=== PATIENT | male | born 1950 | race Caucasian/White ===

== ENCOUNTER → 2017-03-05 | Outpatient (CLI) | payer MEDICARE, OTHER ==
[~2017-03-05] MED LIST: AMITRIPTYLINE H25 MG PO; CELEBREX200 MG PO; COQ-10100 MG PO; COUMADIN2.5 MG PO; COUMADIN5 MG PO; DIGOXIN125 MCG PO; DOXAZOSIN MESYLA4 MG PO; ELAVIL25 MG PO; FISH OIL; FISH OIL + D31 EACH PO; FISH OIL 1,0001 EA11 PO; FUROSEMIDE20 MG PO; FUROSEMIDE40 MG PO; GLIPIZIDE5 MG PO; GLUCOPHAGE1000 MG PO; HYDROCODON-ACE1 EAC7 PO; LACTINEX PACKE1 EACH PO; LEVAQUIN750 MG PO; LIPITOR80 MG PO; LISINOPRIL2.5 MG PO; LISINOPRIL5 MG PO; LOPRESSOR50 MG PO; METFORMIN HCL1000 MG PO; METOPROLOL TART50 MG PO; OMEPRAZOLE20 MG PO; PREDNISONE10 MG PO; TIZANIDINE HCL2 MG PO
== END | disposition home or self-care (01) ==
LOC: CDC 10:25
DX: Z01.810 Encounter for preprocedural cardiovascular examination (principal); C76.0 Malignant neoplasm of head, face and neck; I48.91 Unspecified atrial fibrillation
CPT/HCPCS: 93000

== ENCOUNTER → 2017-03-10 | Outpatient (CLI) | payer OTHER ==
[~2017-03-10] VITALS: Ht 188 cm; Wt 150.5 kg
[~2017-03-10] MED LIST changes: +ATIVAN0.5 MG PO; +COMPAZINE10 MG PO; +LOVENOX150 MG/1 M SC; +ZOFRAN8 MG PO
[2017-03-10 12:01] LABS: POINT-OF-CARE METER ID UU14107333
[2017-03-10 12:13] LABS: INTER. NORMALIZED RATIO 1.3; PTT 30.6 SEC (25-37)
[2017-03-10 13:29] LABS: POINT-OF-CARE METER ID UU13113819
== END | disposition home or self-care (01) ==
LOC: AMB 10:48
PROVIDERS: Surgery
PROC: 0DH63UZ Insertion of Feeding Device into Stomach, Percutaneous Approach (ICD-10-PCS; principal; 2017-03-10)
DX: C10.9 Malignant neoplasm of oropharynx, unspecified (principal); I48.91 Unspecified atrial fibrillation; Z79.01 Long term (current) use of anticoagulants; H81.10 Benign paroxysmal vertigo, unspecified ear; M50.30 Other cervical disc degeneration, unspecified cervical region; F41.8 Other specified anxiety disorders; E78.5 Hyperlipidemia, unspecified; I10 Essential (primary) hypertension; E11.9 Type 2 diabetes mellitus without complications; Z79.899 Other long term (current) drug therapy; Z88.8 Allergy status to other drugs, medicaments and biological substances
CPT/HCPCS: 43760; 82948; 85610; 85730; S0074

== ENCOUNTER 2017-03-11 20:43 | Observation (INO) | payer OTHER ==
[~2017-03-11] VITALS: Ht 190.5 cm; Wt 142.4 kg
[~2017-03-11 20:43] MED LIST changes: -ATIVAN0.5 MG PO; -COMPAZINE10 MG PO; -LOVENOX150 MG/1 M SC; -ZOFRAN8 MG PO
[2017-03-11 21:12] LABS: EOSINOPHIL (%) 0.3 % (0-5); HEMATOCRIT 38.9 % (38.0-50.0); IMMATURE GRANULOCYTE (%) 0.5 % (0.0-0.7); IMMATURE GRANULOCYTE COUNT 0.1 K/uL; INSTRUMENT ABS NEUTROPHIL CT 10.2 K/uL; LYMPHOCYTE COUNT 1.4 K/uL (1.0-2.8); MCH 30.5 PG (29.0-34.0); MCHC 33.9 G/DL (30.0-36.0); MCV 89.8 FL (86-99); MEAN PLAT.VOLUME 10.8 uM^3 (9.0-12.4); MONOCYTE (%) 10.6 % (3-12); MONOCYTE COUNT 1.4 K/uL (0-0.8); NEUTROPHIL (%) 77.8 % (45-76); NEUTROPHIL COUNT 10.2 K/uL (1.8-6.4); PLATELET COUNT 166 K/uL (156-360); RBC DIS.WIDTH-CV 13.2 % (11.8-14.6); RBC DIS.WIDTH-SD 43.6 % (39-53); RED BLOOD COUNT 4.33 M/uL (4.00-5.50); WHITE BLOOD COUNT 13.1 K/uL (4.1-10.2)
[2017-03-11 21:20] LABS: CHLORIDE 100 mEq/L (99-109); POTASSIUM 3.9 mEq/L (3.7-5.4); SODIUM 138 mEq/L (136-147)
[2017-03-11 21:21] LABS: GLUCOSE 214 mg/dL (70-99)
[2017-03-11 21:23] LABS: ANION GAP 11 MEQ/L (2-14)
[2017-03-11 21:25] LABS: GFR ESTIMATE (CALCULATED) > 59 mL/min/ (58.99-99999)
[2017-03-11 21:26] LABS: UREA NITROGEN (BUN) 12 mg/dL (9-23)
[2017-03-11 21:32] LABS: TROP-I INTERPRETATION NEGATIVE; TROPONIN-I < 0.01 ng/mL (0.0-0.30)
[2017-03-11 21:37] LABS: INTER. NORMALIZED RATIO 1.3; PROTHROMBIN TIME 14.6 SEC (10.2-12.9)
[2017-03-12] MEDS ORDERED: ATIVAN0.5 MG PO (00:40)
[2017-03-12] MEDS ORDERED: ZOFRAN8 MG PO (00:41)
[2017-03-12] MEDS ORDERED: COMPAZINE10 MG PO (00:41)
[2017-03-12 02:20] LABS: MAGNESIUM 1.6 mg/dL (1.3-2.7)
[2017-03-12 02:30] VITALS: BP 120/56
[2017-03-12 03:57] LABS: HEMATOCRIT 35.4 % (38.0-50.0); MCH 30.6 PG (29.0-34.0); MCHC 34.2 G/DL (30.0-36.0); MCV 89.4 FL (86-99); MEAN PLAT.VOLUME 11.3 uM^3 (9.0-12.4); PLATELET COUNT 140 K/uL (156-360); RBC DIS.WIDTH-CV 13.3 % (11.8-14.6); RBC DIS.WIDTH-SD 43.8 % (39-53); RED BLOOD COUNT 3.96 M/uL (4.00-5.50); WHITE BLOOD COUNT 11.9 K/uL (4.1-10.2)
[2017-03-12 08:03] LABS: ANION GAP 11 MEQ/L (2-14); CHLORIDE 102 MEQ/L (99-109); GFR ESTIMATE (CALCULATED) > 59 mL/min/ (58.99-99999); GLUCOSE 259 mg/dL (70-99); POTASSIUM 3.6 MEQ/L (3.7-5.4); SAMPLE HEMOLYSIS CHECK 0; SAMPLE ICTERIC CHECK 0; SAMPLE LIPEMIA CHECK 0; SODIUM 138 MEQ/L (136-147); UREA NITROGEN (BUN) 11 mg/dL (9-23)
[2017-03-12 08:42] VITALS: BP 126/72
[2017-03-12 12:34] LABS: TROP-I INTERPRETATION NEGATIVE; TROPONIN-I < 0.01 ng/mL (0.0-0.30)
[2017-03-12 12:42] VITALS: BP 142/89
[2017-03-12 13:16] LABS: Estimated Average Glucose 246 mg/dL (70-123); HEMOGLOBIN A1c (GLYCOHEMOGLOB) 10.2 % HGB (Below 5.7)
[2017-03-12 16:20] VITALS: BP 131/78
[2017-03-12 18:30] LABS: POINT-OF-CARE METER ID UU14314088
[2017-03-12 20:56] VITALS: BP 119/58
[2017-03-12 21:09] LABS: POINT-OF-CARE METER ID UU13113781
[2017-03-12 23:27] VITALS: BP 131/64
[2017-03-13 03:40] VITALS: BP 134/60
[2017-03-13 06:14] LABS: HEMATOCRIT 35.3 % (38.0-50.0); MCH 30.7 PG (29.0-34.0); MCHC 33.7 G/DL (30.0-36.0); MEAN PLAT.VOLUME 12.3 uM^3 (9.0-12.4); PLATELET COUNT 147 K/uL (156-360); RBC DIS.WIDTH-CV 13.2 % (11.8-14.6); RBC DIS.WIDTH-SD 44.1 % (39-53); RED BLOOD COUNT 3.88 M/uL (4.00-5.50); WHITE BLOOD COUNT 10.7 K/uL (4.1-10.2)
[2017-03-13 07:00] LABS: ALKALINE PHOSPHATASE 68 IU/L (3-129); ANION GAP 8 MEQ/L (2-14); CHLORIDE 101 MEQ/L (99-109); GFR ESTIMATE (CALCULATED) > 59 mL/min/ (58.99-99999); GLUCOSE 148 mg/dL (70-99); MAGNESIUM 1.7 mg/dl (1.3-2.7); SAMPLE HEMOLYSIS CHECK 0; SAMPLE ICTERIC CHECK 0; SAMPLE LIPEMIA CHECK 0; SODIUM 136 MEQ/L (136-147); TOTAL BILIRUBIN 1.2 MG/DL (0.0-1.0); UREA NITROGEN (BUN) 8 mg/dL (9-23)
[2017-03-13 08:15] LABS: POINT-OF-CARE METER ID UU13113781
[2017-03-13 08:43] VITALS: BP 152/80
[2017-03-13] MEDS ORDERED: LOVENOX150 MG/1 M SC (11:30)
[2017-03-13 11:35] LABS: POINT-OF-CARE METER ID UU13113698
== END 2017-03-13 14:19 | disposition home or self-care (01) ==
LOC: EME 20:43 → 4EAST 03-12 00:35 → EDOF 03-12 00:35 → ENRESERV 03-12 00:36 → 4EAST 03-12 02:29
PROVIDERS: Emergency Medicine; Hospitalist; Internal Medicine Cardiovascular Disease
DX: I48.2 Chronic atrial fibrillation (principal); R09.02 Hypoxemia; I42.9 Cardiomyopathy, unspecified; I10 Essential (primary) hypertension; E11.9 Type 2 diabetes mellitus without complications; E66.01 Morbid (severe) obesity due to excess calories; K59.00 Constipation, unspecified; Z93.1 Gastrostomy status; C10.9 Malignant neoplasm of oropharynx, unspecified; R60.0 Localized edema; E86.0 Dehydration; Z79.01 Long term (current) use of anticoagulants; Z79.4 Long term (current) use of insulin; Z88.8 Allergy status to other drugs, medicaments and biological substances
CPT/HCPCS: 71020; 71275; 74177; 80048; 80053; 82948; 83036; 83605; 83735; 83880; 84484; 85025; 85027; 85610; 85730; 87040; 93005; 93306; 94640; G0378; J1650; J1815; J3010; J3475; J7030; J7120

== ENCOUNTER 2017-07-19 07:14 | Day surgery (SDC) | payer OTHER ==
[~2017-07-19] VITALS: Ht 190.5 cm; Wt 124.0 kg
[~2017-07-19 07:14] MED LIST changes: +ATIVAN0.5 MG PO; +BASAGLAR K100 UNIT/1 SC; +COMPAZINE10 MG PO; +GLUCOTROL5 MG PO; +LOVENOX150 MG/1 M SC; +NOVOLOG PE100 UNITS/ SC; +VALIUM5 MG PO; +ZOFRAN8 MG PO
[2017-07-19 08:12] VITALS: BP 113/72
[2017-07-19 08:30] LABS: PTT 31.8 SEC (25-37)
[2017-07-19 12:15] VITALS: BP 135/85
[2017-07-19 13:10] VITALS: BP 130/66
== END 2017-07-19 13:26 | disposition home or self-care (01) ==
LOC: SDC 07:14
PROVIDERS: Surgery
DX: Z43.1 Encounter for attention to gastrostomy (principal); L92.8 Other granulomatous disorders of the skin and subcutaneous tissue; C76.0 Malignant neoplasm of head, face and neck; I48.91 Unspecified atrial fibrillation; I10 Essential (primary) hypertension; Z79.01 Long term (current) use of anticoagulants; E11.9 Type 2 diabetes mellitus without complications; Z79.84 Long term (current) use of oral hypoglycemic drugs; Z88.8 Allergy status to other drugs, medicaments and biological substances; Z82.49 Family history of ischemic heart disease and other diseases of the circulatory system; Z83.3 Family history of diabetes mellitus
CPT/HCPCS: 82948; 85610; 85730; 93005; 94640

== ENCOUNTER 2017-09-16 22:30 | Emergency (ER) | payer OTHER ==
[~2017-09-16] VITALS: Ht 190.5 cm; Wt 118.3 kg
[2017-09-17 03:05] LABS: BASOPHIL (%) 0.4 % (0-1); EOSINOPHIL (%) 1.3 % (0-5); EOSINOPHIL COUNT 0.1 K/uL (0-0.3); HEMATOCRIT 34.8 % (38.0-50.0); HEMOGLOBIN 12.3 G/DL (12.5-16.6); IMMATURE GRANULOCYTE (%) 0.4 % (0.0-0.7); LYMPHOCYTE (%) 9.5 % (15-42); LYMPHOCYTE COUNT 0.9 K/uL (1.0-2.8); MCH 31.9 PG (29.0-34.0); MCHC 35.3 G/DL (30.0-36.0); MCV 90.4 FL (86-99); MONOCYTE (%) 7.1 % (3-12); MONOCYTE COUNT 0.6 K/uL (0-0.8); NEUTROPHIL (%) 81.3 % (45-76); NEUTROPHIL COUNT 7.3 K/uL (1.8-6.4); PLATELET COUNT 129 K/uL (156-360); RBC DIS.WIDTH-CV 12.7 % (11.8-14.6); RBC DIS.WIDTH-SD 41.4 % (39-53); RED BLOOD COUNT 3.85 M/uL (4.00-5.50)
[2017-09-17 03:22] LABS: ALBUMIN 4.3 g/dL (3.2-4.8); CHLORIDE 101 mEq/L (99-109); POTASSIUM 3.8 mEq/L (3.7-5.4); SODIUM 139 mEq/L (136-147)
[2017-09-17 03:23] LABS: MAGNESIUM 1.6 mg/dL (1.3-2.7)
[2017-09-17 03:25] LABS: GLUCOSE 140 mg/dL (70-99); TOTAL PROTEIN 7.7 g/dL (6.4-8.3)
[2017-09-17 03:28] LABS: ALKALINE PHOSPHATASE 115 IU/L (3-129); CREATININE 0.8 mg/dL (0.6-1.3); GFR ESTIMATE (CALCULATED) > 59 mL/min/ (58.99-99999)
[2017-09-17 03:29] LABS: UREA NITROGEN (BUN) 13 mg/dL (9-23)
[2017-09-17 03:30] LABS: AST (GOT) 20 IU/L (2-34)
[2017-09-17 03:31] LABS: ALT (GPT) 18 IU/L (3-49)
[2017-09-17] MEDS ORDERED: FLEXERIL10 MG PO (06:15)
[2017-09-17] MEDS ORDERED: ULTRAM50 MG PO (06:15)
[2017-09-17] MEDS ORDERED: MOTRIN800 MG PO (06:18)
[2017-09-17 06:46] VITALS: BP 154/86
== END 2017-09-17 06:52 | disposition home or self-care (01) ==
LOC: EME 22:30
PROVIDERS: Emergency Medicine
DX: M54.2 Cervicalgia (principal); J38.7 Other diseases of larynx; E04.1 Nontoxic single thyroid nodule; R93.8 Abnormal findings on diagnostic imaging of other specified body structures; E11.9 Type 2 diabetes mellitus without complications; K21.9 Gastro-esophageal reflux disease without esophagitis; E78.5 Hyperlipidemia, unspecified; F41.9 Anxiety disorder, unspecified; Z79.4 Long term (current) use of insulin; Z79.01 Long term (current) use of anticoagulants; Z93.1 Gastrostomy status; Z92.3 Personal history of irradiation; Z85.89 Personal history of malignant neoplasm of other organs and systems; Z88.8 Allergy status to other drugs, medicaments and biological substances
CPT/HCPCS: 70470; 70491; 80053; 83735; 85025; 99281; 99285; J1885; J7040